=== PATIENT | male | born 1950 | race American Indian/Alaskan Native ===

== ENCOUNTER 2021-06-12 14:03 | Emergency (ER) | payer MEDICARE ==
[2021-06-12 14:48] VITALS: BP 130/70
[2021-06-12 16:17] LABS: Bilirubin,Urine NEG (Negative); Blood,Urine LG (Negative); Color,Urine Yellow (Yellow); Urobilinogen,Urine < 2.0 mg/dL (<2.0)
[2021-06-12 16:19] LABS: RBC,Urine > 182.0 /HPF (0.0-6.0)
[2021-06-12] MEDS ORDERED: cefTRIAXone/NS 1 GM/50 ML 1 GM/50 ML BAG IV ONE (16:24)
[2021-06-12] MEDS ORDERED: SODIUM CHLORIDE 0.9% 1000 ML 1,000 ML IV ONE (16:24)
--- NOTE | 2021-06-12 17:03 | Emergency Department Report ---
ED Male HPI - General Chief complaint: Urogenital-Male Stated complaint: BLOOD IN URINE Time Seen by Provider: 06/12/21 15:37 Source: patient Mode of arrival: Ambulatory Limitations: No Limitations - History of Present Illness Initial comments: Patient is an otherwise healthy 71-year-old male who comes to the emergency room complaining of hematuria he had been to his primary care's office on for shoulder pain. They told him it was musculoskeletal and gave him a steroid injection. He thinks that the steroid injection is what is causing his hematuria. He denies flank pain. He denies difficulty urinating. He denies any dysuria. He denies back pain. Patient denies history of kidney stones. He denies fever or chills. Patient is much younger than stated age and in good health. He is ambulatory, nontoxic [id number] on arrival to ER MD Complaint: other -: Sudden, hour(s) Radiation: none Severity scale (0 -10): 0 Improves with: none Worsens with: none denies other symptoms, blood in urine. denies: discharge, swelling, mass, rash, urinary retention, dysuria, fever, nausea/vomiting, incontinence - Related Data Sexually active: No Allergies Allergy/AdvReac Type Severity Reaction Status Date / Time lisinopril Allergy Unknown Verified 06/12/21 14:49 ED Review of Systems ROS: Stated complaint: BLOOD IN URINE Other details as noted in HPI Comment: All other systems reviewed and negative ED Past Medical Hx - Past Medical History Hx Hypertension: Yes - Family History Family history: no significant - Social History Smoking Status: Never Smoker Substance Use Type: None ED Physical Exam - General Limitations: No Limitations General appearance: alert, in no apparent distress - Head Head exam: Present: atraumatic, normocephalic - Eye Eye exam: Present: normal appearance - ENT ENT exam: Present: mucous membranes moist - Neck Neck exam: Present: normal inspection - Respiratory Respiratory exam: Present: normal lung sounds bilaterally. Absent: respiratory distress - Cardiovascular Cardiovascular Exam: Present: regular rate, normal rhythm. Absent: systolic murmur, diastolic murmur, rubs, gallop - GI/Abdominal GI/Abdominal exam: Present: soft, normal bowel sounds - Rectal Rectal exam: Present: deferred - Extremities Exam Extremities exam: Present: normal inspection - Back Exam Back exam: Present: normal inspection - Neurological Exam Neurological exam: Present: alert, oriented X3 - Psychiatric Psychiatric exam: Present: normal affect, normal mood - Skin Skin exam: Present: warm, dry, intact, normal color. Absent: rash ED Course Vital Signs 06/12/21 14:43 Temperature 98.7 F Pulse Rate 58 L Respiratory 18 Rate Blood Pressure 130/70 [Right] O2 Sat by Pulse 99 Oximetry ED Medical Decision Making - Lab Data Result diagrams: 06/12/21 17:07 06/12/21 17:07 - Radiology Data Radiology results: report reviewed, image reviewed See report - Medical Decision Making Vital Signs 06/12/21 14:43 Temperature 98.7 F Pulse Rate 58 L Respiratory 18 Rate Blood Pressure 130/70 [Right] O2 Sat by Pulse 99 Oximetry Labs 06/12/21 06/12/21 06/12/21 15:48 17:07 17:07 WBC 7.7 RBC 5.75 H Hgb 16.2 H Hct 50.0 H MCV 87 MCH 28 MCHC 32 RDW 13.8 Plt Count 208 PT 14.7 INR 1.03 Urine Color Yellow Urine Turbidity Clear Urine pH 5.0 Ur Specific [place] 1.025 Urine Protein 100 mg/dl Urine Glucose (UA) >=500 Urine Ketones Neg Urine Blood Lg Urine Nitrite Neg Urine Bilirubin Neg Urine Urobilinogen < 2.0 Ur Leukocyte Esterase Neg Urine WBC (Auto) 2.0 Urine RBC (Auto) > 182.0 U Epithel Cells (Auto) 1.0 UA noted Labs noted CT noted Patient given a liter normal saline, Toradol, Zofran and Rocephin IV in the ER. On discharge exam patient is in no acute distress. He reports feeling fine. He states he never really had a lot of pain he was just concerned about the blood in his urine. He denies having nausea and vomiting prior to arrival in the ER. I have medicated him for I think he has passed a kidney stone. Patient is on no blood thinners. Patient being discharged home with discharge plan of care including diet, activity, medications and follow-up. Patient understands that he must follow-up with urology. I have given him a referral to Dr. Hal Calderon . patient verbalizes understanding of plan of care. On discharge patient is taking p.o. ambulatory and in no acute distress - Differential Diagnosis Rule out UTI, Horacio, kidney stone Critical care attestation.: If time is entered above; I have spent that time in minutes in the direct care of this critically ill patient, excluding procedure time. ED Disposition Clinical Impression: Hematuria Qualifiers: Hematuria type: unspecified type Qualified Code(s): R31.9 - Hematuria, unspecified Disposition: 01 HOME / SELF CARE / HOMELESS Is pt being admited?: No Does the pt Need Aspirin: No Condition: Stable Instructions: Hematuria, Adult Additional Instructions: Stay well-hydrated with water Motrin or Tylenol for pain Follow-up with PCP and urology Referrals below Medications as ordered today Avoid alcohol Continue home medications Referrals: KEANU GA MD [Staff Physician] - 3-5 Days SHASTA HONG MD [Staff Physician] - 3-5 Days Time of Disposition: 17:47
[2021-06-12 17:43] LABS: Hemoglobin 16.2 gm/dl (11.8-15.2); Mean Corpuscular HGB Conc 32 % (32-34); Mean Corpuscular Volume 87 fl (84-94); Platelet Count 208 K/mm3 (140-440); Red Blood Count 5.75 M/mm3 (3.65-5.03); Red Cell Distribution Width 13.8 % (13.2-15.2)
[2021-06-12 17:54] LABS: INR 1.03 (0.87-1.13)
[2021-06-12 17:55] LABS: Partial Thromboplastin Time 37.9 Sec. (24.2-36.6)
[2021-06-12 18:03] LABS: Alanine Aminotransferase 20 units/L (7-56); BUN/Creatinine Ratio 21; Blood Urea Nitrogen 23 mg/dL (9-20); Calcium 9.4 mg/dL (8.4-10.2); Hemolysis Index 13
[2021-06-12] MEDS ORDERED: ONDANSETRON 4 MG/2 ML INJ IV ONE (18:07)
[2021-06-12] MEDS ORDERED: KETOROLAC 30 MG/1 ML INJ IV ONE (18:07)
--- NOTE | 2021-06-12 18:14 | Cat Scan Report ---
CT ABDOMEN AND PELVIS WITHOUT CONTRAST INDICATION / CLINICAL INFORMATION: hematuria. TECHNIQUE: Axial CT images were obtained through the abdomen and pelvis without IV contrast. All CT scans at health system location are performed using CT dose reduction for ALARA by means of automated exposure control. E xam limited by motion artifact. COMPARISON: None available. FINDINGS: LOWER CHEST: No significant abnormality. LIVER: No significant abnormality. GALLBLADDER: No significant abnormality. BILE DUCTS: No significant abnormality. PANCREAS: No significant abnormality. SPLEEN: No significant abnormality. ADRENALS: No significant abnormality. RIGHT KIDNEY and URETER: No significant abnormality. LEFT KIDNEY and URETER: No significant abnormality. STOMACH and SMALL BOWEL: There is some thickening involving the mucosa of the distal gastric antrum. This is difficult to assess as the stomach is mostly collapsed.. COLON: No significant abnormality. APPENDIX: No significant abnormality. PERITONEUM: No free fluid. No free air. No fluid collection. LYMPH NODES: No significant adenopathy. AORTA and ARTERIES: No significant abnormality. IVC and VEINS: No significant abnormality. URINARY BLADDER: No significant abnormality. REPRODUCTIVE ORGANS: No significant abnormality. ADDITIONAL FINDINGS: Small fat-containing periumbilical hernia.. SKELETAL SYSTEM: No significant abnormality. IMPRESSION: Question mild gastritis. Otherwise, negative acute findings within the limits of the noncontrast tech nique. Signer Name: Ayaz Quinonez MD Signed: 06/12/2021 6:10 PM Workstation Name: [employer]
== END 2021-06-12 18:34 | disposition home or self-care (01) ==
LOC: ED 14:03
DX: R31.9 Hematuria, unspecified (principal); R51.9 Headache, unspecified; I10 Essential (primary) hypertension; Z91.09 Other allergy status, other than to drugs and biological substances
CPT/HCPCS: 36415; 74176; 80053; 81001; 85027; 85610; 85730; 96365; 96375; 99284; J0696; J1885; J2405; J7030